=== PATIENT | male | born 1980 | race Caucasian/White ===

== ENCOUNTER → 2023-09-07 10:56 | Outpatient (BNVA) | payer MEDICAID, SELFPAY | PROVIDERS: Visit Provider Nurse Practitioner | DX: K46.9 Unspecified abdominal hernia without obstruction or gangrene (principal); R50.9 Fever, unspecified; J98.8 Other specified respiratory disorders | CPT/HCPCS: 87400; 87426 ==

== ENCOUNTER 2023-11-25 06:36 | Day surgery (SDC) | payer MEDICAID, SELFPAY ==
[2023-11-25] VITALS (11 sets, daily range): BP systolic 87–136; BP diastolic 45–78; PULSE 70–109; RESP 13–22; TEMP 36.4–36.6; O2SAT 91–99
[2023-11-25] MEDS: sodium chloride 0.9% 1,000 ML 30 ML IV (07:26)
[2023-11-25] MEDS: midazolam 1 mg/mL INJ 2 mL 2 MG IVP (07:28)
--- NOTE | 2023-11-25 08:11 | P.HP_ITS ---
Same Day Surgery H&P Indication for Procedure/HPI DATE OF PROCEDURE: November 25, 2023 CHIEF COMPLAINT/INDICATIONFOR SURGICAL PROCEDURE: bilateral inguinal hernia PREOP DIAGNOSIS: bilateral inguinal hernia PLANNED PROCEDURE: Operation Date: 11/25/23 08:10 Proposed Procedures p lap possible open bilateral inguinal hernia repair with mesh [id number] x2,K40.20(Bilateral) - Baltazar Atkinson MD Medications/Allergies* Home Medications Medication Instructions Recorded Confirmed Type No Known Home Medications 09/28/23 11/24/23 History Allergies/Adverse Reactions Allergy/AdvReac Type Severity Reaction Status Date / Time No Known Allergies Allergy Verified 11/25/23 07:00 Current Medications: Generic Name Dose Route Start Last Admin Trade Name Freq PRN Reason Stop Dose Admin Sodium Chloride 1,000 mls @ 30 mls/hr 11/25/23 07:15 11/25/23 07:26 Sodium Chloride 0.9% IV 11/26/23 07:14 30 mls/hr .Q24H FLORY Administration Midazolam HCl 2 mg 11/25/23 07:08 11/25/23 07:28 Midazolam 1 Mg/Ml Inj 2 Ml IVP 2 mg Q5M PRN Administration Preop Anxiety Pertinent History/Comorbid Conditions* Family History (Updated 09/07/23 @ 10:42 by Lien Nevarez LPN) Diabetes Grandfather maternal and paternal Grandmother maternal and paternal Cancer Grandfather paternal Mother breast Hypertension Stroke Grandfather paternal Denies family history of Clotting disorder Heart disease Chronic kidney disease (CKD) Bleeding disorder Thyroid disease Social History Smoking and tobacco/nicotine status: current every day tobacco/nicotine user e- cigarettes E-Cigarette Details: e-cigarette and with nicotine Alcohol intake: former Year of sobriety/quit date alcohol: 2019 Substance/Drug Use: former Date of last use: 2019 Pertinent Exam Findings alert, oriented x 3, clear to auscultation bilaterally, regular rate & rhythm and operative site marked Recommendations Surgery/Procedure today Other Plans: Laparoscopic bilateral inguinal hernia repair with mesh today. I have explained to the patient if there is a need for conversion to open procedure I will fix his left side and will leave the right side for a later date. Coding Level of Care Code Acute Code for [facility]
[2023-11-25] MEDS: ceFAZolin 2,000 MG in sodium chloride 0.9% (plus) 50 ML 100 MG IV (08:49)
[2023-11-25] MEDS: lidocaine-epi 1% 20 mL INJ INJECTION (09:51)
[2023-11-25] MEDS: BUPivacaine 0.25% INJ 30 mL INJECTION (09:52)
--- NOTE | 2023-11-25 10:27 | P.ANESASSM_ITS ---
Pre-Anesthetic Assessment Height/Weight: Height 1.83 m Weight 74.843 kg Temp Pulse Resp BP Pulse Ox O2 Del Method 97.5 F L 90 18 136/78 98 Room Air 11/25/23 07:08 11/25/23 07:08 11/25/23 07:08 11/25/23 07:08 11/25/23 07:08 11/25/23 07:12 Preop Diagnosis: bilateral inguinal hernia Operation Date: 11/25/23 08:10 Proposed Procedures p lap possible open bilateral inguinal hernia repair with mesh [id number] x2,K40.20(Bilateral) - Baltazar Atkinson MD Familial anesthetic complications: none Was Beta Franci taken within 24 hours: N/A Was Clonidine taken within 24 hours: N/A Last intake: Intake Last Liquid Date 11/24/23 Last Liquid Time 22:30 Last Solid Date 11/24/23 Last Solid Time 22:30 Social Tobacco and No alcohol vapes [email or web address] Exam alert, oriented x 3, clear to auscultation bilaterally and regular rate & rhythm Airway Submandibular: within normal limits Cervical ROM: within normal limits Mallampati: Class II Dentition: full Neuropsych Anxiety and Depression Anesthetic Plan ASA status: 2 Anesthesia: General Medications/Allergies Home Medications Medication Instructions Recorded Confirmed Last Taken Type No Known Home Medications 09/28/23 11/24/23 Unknown History Allergies Allergy/AdvReac Type Severity Reaction Status Date / Time No Known Allergies Allergy Verified 11/25/23 07:00 Current Medications Generic Name Dose Route Start Last Admin Trade Name Freq PRN Reason Stop Dose Admin Sodium Chloride 1,000 mls @ 30 mls/hr 11/25/23 07:15 11/25/23 10:02 Sodium Chloride 0.9% IV 11/26/23 07:14 Infused .Q24H FLORY Infusion Midazolam HCl 2 mg 11/25/23 07:08 11/25/23 07:28 Midazolam 1 Mg/Ml Inj 2 Ml IVP 2 mg Q5M PRN Administration Preop Anxiety PFSH Anesthesia Family History Grandfather Cancer paternal Diabetes maternal and paternal Stroke paternal Grandmother Diabetes maternal and paternal Mother Cancer breast Other Hypertension Denies family history of Clotting disorder Heart disease Chronic kidney disease (CKD) Bleeding disorder Thyroid disease Social History (Updated 09/28/23 @ 10:27 by COLBY Arriaga) Smoking and tobacco/nicotine status: current every day tobacco/nicotine user e- cigarettes E-Cigarette Details: e-cigarette and with nicotine Alcohol intake: former Year of sobriety/quit date alcohol: 2020 Substance/Drug Use: former Date of last use: 2019 Data Anesthesia Cardiac Studies: No Data to Display
--- NOTE | 2023-11-25 11:03 | PM.OP ---
Operative Report Date of procedure: November 25, 2023 Pre-op diagnosis: Bilateral inguinal hernias Post-op diagnosis: Bilateral inguinal hernias Post-op findings: There was a very large left inguinoscrotal hernia indirect, on the right there was a small inguinal hernia indirect and a lipoma of the cord. Procedure done: Laparoscopic repair of bilateral inguinal hernias Implants: Large left 3D max mesh Medium right 3D max mesh Surgeon: Baltazar Atkinson MD Roller Coaster Engineer: perlita OR Staff Complications: none apparent Brief History: 43-year-old male with bilateral inguinal hernias, after discussion of all risk benefits as documented in my preop note we decided to proceed with laparoscopic possible open repair. Procedure: Patient was brought into the OR. He was placed in the supine position. General esthesia was given. Graham catheter was inserted. The abdomen was prepped and draped in the usual sterile fashion. Timeout was conducted. A 2 cm infraumbilical incision was made, the incision was deepened to the level of the anterior rectus sheath, once the right anterior rectus sheath was identified this was opened with electrocautery and the rectus muscle was retracted laterally to allow access to the retrorectus space. A Spacemaker was advanced into the retrorectus space and carefully advanced to the level of the pubic bone. The Spacemaker was inflated under direct visualization, anatomic landmarks were identified good development of the space1 was noted. The Spacemaker was removed and replaced by a 12 mm trocar with balloon. Additional 5 mm trocars were placed in the suprapubic and infraumbilical positions under direct visualization. I first placed my attention to the left groin, I developed the space of Joses laterally, after adequate development of the space I proceeded to explore the area of the internal ring, at this point an indirect hernia was identified, the hernia sac was very adhesed to the surrounding structures and appeared to be extremely elongated due to the chronic nature of the hernia, several attempts were made to reduce the side completely, eventually I decided to proceed with circumferential dissection of the sac the cord structures Were identified and preserved and I then proceeded to transect the sac distally. Once the sac was transected I repaired the defect on the peritoneum using a 0 Vicryl Endoloop. At the end of the dissection no direct hernia was identified no evidence of femoral hernia and I was able to place large left-sided 3D max mesh on the space. The mesh was to the pubic bone, and it was noted that the tube cover all the spaces of the inguinal region and I made sure that the peritoneum was retracted superiorly so it would not interfere with mesh placement in the anterior abdominal wall. At this point I placed my attention to the right groin. I the middle of the space of Borgess laterally and once at the space of Borgess was fully developed I proceeded to explore the indirect hernia area, I was able to individualize a hernia sac and reduce it I preserved the vas deferens and the cord. after dissection of the sac it was apparent that there was a cord lipoma also on the indirect space, the cord lipoma was reduced to the preperitoneal space. I then placed a medium size right side 3D max mesh and tacked it to the pubic bone medially. Mesh position was once again verified on both sides, I then proceeded to remove the pneumoperitoneum and direct distalization to ensure adequate overlapping of the mesh. I then proceeded to remove the trocars. The wounds were then closed in layers, the fascia of the umbilical trocar site was closed with #0 Vicryl, the subcutaneous tissue with #3-0 Vicryl and the skin was closed with #4 Monocryl. Dermabond was applied. At the end of the procedure all counts were correct. The patient tolerated well the procedure and was transferred to the PACU in stable condition. Graham catheter was removed previous to extubation.
[2023-11-25] MEDS: ondansetron 2 mg/ML SDV 2 mL 4 MG IVP ×2 (11:48→11:57)
[2023-11-25] MEDS: metoclopramide 5 mg/mL SDV 2 mL 10 MG IVP (12:03)
[2023-11-25] MEDS: diphenhydrAMINE 50 mg/mL SDV 1mL 12.5 MG IVP (12:31)
[2023-11-25] MEDS: oxyCODONE-APAP 5-325 mg Tablet 1 TAB PO (12:33)
--- NOTE | 2023-11-25 14:18 | ANE.PACU2 ---
Inpatient post-anesthesia follow up: Airway intact: Yes Vital signs: Temperature 97.8 F Pulse Rate 73 Respiratory Rate 16 Blood Pressure 131/65 Pulse Oximetry 98 Oxygen Delivery Me thod Room Air Oxygen Flow Rate 6 Fraction of Inspir ed Oxygen Hydration adequate: Yes Nausea and vomiting: Yes Pain level: 3 Mental status: Baseline
== END 2023-11-25 12:55 | disposition home or self-care (01) ==
PROVIDERS: Visit Provider Surgery
PROC: (CPT 49650; principal; 2023-11-25 08:00)
DX: K40.20 Bilateral inguinal hernia, without obstruction or gangrene, not specified as recurrent (principal); D17.6 Benign lipomatous neoplasm of spermatic cord; F17.290 Nicotine dependence, other tobacco product, uncomplicated
CPT/HCPCS: 49650; 51702; C1781; J0131; J0690; J1100; J1170; J1200; J1885; J2250; J2371; J2405; J2704; J2710; J2765; J3010; J3490; J7030